=== PATIENT | female | born 1980 | race Hispanic/Latino ===

== ENCOUNTER 2020-12-08 09:52 | Emergency (ER) | payer BC ==
[~2020-12-08] VITALS: Ht 167.6 cm; Wt 77.1 kg
[2020-12-08] MEDS ORDERED: TETANUS/DIPHTHERIA TOX ADULT 0.5 ML SYR IM ONE (10:15)
[2020-12-08] MEDS ORDERED: HYDROCODONE/APAP 7.5MG-325MG 1 EA TAB PO ONE (10:15)
[2020-12-08] MEDS ORDERED: EYE IRRIGATION (OPTH) 120 ML BTL OP ONE (10:15)
[2020-12-08] MEDS ORDERED: FLUORESCEIN SOD(OPTH) 1 MG STRP OP ONE (10:15)
[2020-12-08] MEDS ORDERED: KETOROLAC TROMETHAMINE 60 MG/2 ML VIAL IM ONE (10:15)
[2020-12-08] MEDS ORDERED: TETRACAINE HCL 0.5% OPTH SOLN 4 ML BTL OP ONE (10:15)
[2020-12-08] MEDS ORDERED: TETRACAINE HCL 0.5% OPTH SOLN 4 ML BTL ONE (10:21)
[2020-12-08] MEDS ORDERED: EYE IRRIGATION (OPTH) 120 ML BTL ONE (10:21)
== END 2020-12-08 10:48 | disposition home or self-care (01) ==
LOC: ER 10:21
DX: T20.10XA Burn of first degree of head, face, and neck, unspecified site, initial encounter (principal); T26.12XA Burn of cornea and conjunctival sac, left eye, initial encounter; T26.11XA Burn of cornea and conjunctival sac, right eye, initial encounter; X10.1XXA Contact with hot food, initial encounter; Y92.000 Kitchen of unspecified non-institutional (private) residence as the place of occurrence of the external cause
CPT/HCPCS: 90471; 90714; 99283; J1885